=== PATIENT | male | born 1960 | race Caucasian/White ===

== ENCOUNTER → 2021-12-13 13:20 | Outpatient (CLI) | payer OTHER, SELFPAY ==
--- NOTE | ~2021-12-13 | XR_ITS ---
XR knee LT 2V 12/13/2021 13:48 Indication: Left knee pain Procedure: 2 views left knee Comparison: 03/09/2018 Findings: There is mild patellofemoral compartment osteoarthritis. No fracture, subluxation or disloc ation. No joint effusion or foreign bodies. Impression: 1: Mild patellofemoral compartment osteoarthritis. Reviewed, dictated and finalized at location B. [employer] DEAN Impression: 1: Mild patellofemoral compartment osteoarthritis.
--- NOTE | ~2021-12-13 | XR_ITS ---
EXAMINATION: XR lumbar spine 2-3V DATE: 12/13/2021 13:48 INDICATION: Chronic low back pain TECHNIQUE: Anteroposterior and lateral views of the lumbar spine, and cone-down lateral view of the l umbosacral junction were obtained. COMPARISON: 12/25/2017 FINDINGS: There are chronic L5 pars defects with stable grade 2 anterolisthesis of L5 on S1. There is severe loss of intervertebral disc space height at L5-S1. The remaining intervertebral disc spaces a re unremarkable. There are 4 mm of retrolisthesis of L4 on L5. The vertebral body heights are maintai felix. IMPRESSION: 1. Chronic L5 pars defects with stable grade 2 spondylolisthesis at L5-S1. Reviewed, dictated and finalized at location F. E SALES REPRESENTATIVE
--- NOTE | ~2021-12-13 | XR_ITS ---
XR knee RT 2V 12/13/2021 13:48 Indication: Right knee pain Procedure: 2 views right knee Comparison: 03/09/2018 Findings: There is mild osteoarthritis of the patellofemoral compartment. No fracture, subluxation or dislocation. No foreign bodies. Impression: 1: Mild patellofemoral compartment osteoarthritis. Reviewed, dictated and finalized at location B. [employer] CYTOPATHOLOGIST Impression: 1: Mild patellofemoral compartment osteoarthritis.
--- NOTE | ~2021-12-13 | XR_ITS ---
EXAMINATION: XR hand LT min 3V INDICATION: Left hand pain TECHNIQUE: Three views of the left hand are obtained COMPARISON: 07/27/2015 FINDINGS: There is no acute fracture, dislocation, or subluxation. 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 Deformity in the tuft of the fourth distal phalanx also h as the appearance of a prior fracture. The soft tissues are unremarkable. There is mild osteoarthriti s of multiple interphalangeal joints. IMPRESSION: 1. No acute osseous abnormality. Reviewed, dictated and finalized at location F. AL DEVELOPER
== END ==
PROVIDERS: PCP Internal Medicine; Visit Provider Pain Medicine Interventional Pain Medicine
DX: M79.642 Pain in left hand (principal); F17.210 Nicotine dependence, cigarettes, uncomplicated; G89.4 Chronic pain syndrome; M43.17 Spondylolisthesis, lumbosacral region; M47.26 Other spondylosis with radiculopathy, lumbar region; M51.36 Other intervertebral disc degeneration, lumbar region; M51.37 Other intervertebral disc degeneration, lumbosacral region; M17.0 Bilateral primary osteoarthritis of knee
CPT/HCPCS: 72100; 73130; 73560